=== PATIENT | male | born 1945 | race African-American/Black ===

== ENCOUNTER 2022-06-07 17:42 | Emergency (ER) | payer OTHER, MEDICARE ==
[~2022-06-07] VITALS: Ht 185.4 cm; Wt 75.0 kg
[~2022-06-07 17:42] MED LIST: ALBU18HF2 IH; CLAR10 PO
[2022-06-07] MEDS ORDERED: ALBUTEROL (0.083%) 2.5MG/3ML NEB HHN STA (18:38)
[2022-06-07] MEDS ORDERED: IPRATROPIUM BROMIDE (0.02%) 0.5MG/2.5ML NEB HHN STA (18:38)
[2022-06-07] MEDS ORDERED: METHYLPREDNISOLONE SOD SUCC 125 MG/2 ML VIAL IV STA (18:38)
[2022-06-07 19:29] LABS: BASOPHILS % 0.7 % (0.0-2.0); CHLORIDE 103 mEq/L (98-107); EOSINOPHILS % 4.8 % (0.0-5.0); HEMOGLOBIN. 13.7 g/dL (14.0-18.0); LYMPHOCYTES % 28.3 % (20.0-50.0); MEAN CORPUSCULAR HEMOGLOBIN 31.4 pg (28.0-32.0); MEAN CORPUSCULAR VOLUME 91.6 fL (80.0-94.0); MEAN PLATELET VOLUME 7.4 fl (7.4-10.4); NEUTROPHILS % 55.2 % (40.0-76.0); PLATELET 257 x1000/uL (130-400); RED BLOOD CELL COUNT 4.36 mill/uL (4.7-6.1); RED CELL DISTRIBUTION WIDTH 13.7 % (11.6-14.6)
[2022-06-07] MEDS ORDERED: ALBU6.7H3 INH (20:14)
[2022-06-07] MEDS ORDERED: LEVO750T68 MT (20:14)
[2022-06-07] MEDS ORDERED: P20 MT (20:14)
[2022-06-07 20:28] VITALS: BP 143/72
== END 2022-06-07 20:33 | disposition home or self-care (01) ==
LOC: ER 17:46
DX: J44.1 Chronic obstructive pulmonary disease with (acute) exacerbation (principal); R06.02 Shortness of breath; R06.2 Wheezing; Z85.9 Personal history of malignant neoplasm, unspecified
CPT/HCPCS: 36415; 71045; 80053; 83880; 84484; 85025; 93005; 96374; 99285; J2930

== ENCOUNTER 2023-09-21 15:45 | Emergency (ER) | payer OTHER ==
[~2023-09-21] VITALS: Ht 180.3 cm; Wt 66.0 kg
[~2023-09-21 15:45] MED LIST changes: +ALBU6.7H3 INH; +LEVO750T68 MT; +P20 MT
[2023-09-21 16:00] VITALS: TEMP 98.3
[2023-09-21 17:17] LABS: BASOPHILS % 0.5 % (0.0-2.0); EOSINOPHILS % 14.4 % (0.0-5.0); HEMATOCRIT. 37.7 % (42.0-52.0); HEMOGLOBIN. 12.9 g/dL (14.0-18.0); LYMPHOCYTES % 30.6 % (20.0-50.0); MEAN CORPUSCULAR HGB CONC 34.1 g/dL (31.0-37.0); MEAN CORPUSCULAR VOLUME 90.9 fL (80.0-94.0); MEAN PLATELET VOLUME 7.5 fl (7.4-10.4); MONOCYTES % 8.2 % (2.0-8.0); NEUTROPHILS % 46.3 % (40.0-76.0); PLATELET 265 x1000/uL (130-400); RED BLOOD CELL COUNT 4.15 mill/uL (4.7-6.1); RED CELL DISTRIBUTION WIDTH 13.8 % (11.6-14.6); WHITE BLOOD COUNT 6.7 x1000/uL (4.5-11.0)
[2023-09-21 17:40] LABS: CHLORIDE 107 mEq/L (98-107); POTASSIUM 4.7 mEq/L (3.5-5.1); SODIUM 141 mEq/L (136-145)
[2023-09-21 17:41] LABS: CALCIUM 8.7 mg/dL (8.7-10.4); CARBON DIOXIDE 27 mEq/L (21-32)
[2023-09-21 17:46] LABS: CREATININE 0.8 mg/dL (0.6-1.3); GLUCOSE 80 mg/dL (70-105); UREA NITROGEN BLOOD 8 mg/dL (9-23)
[2023-09-21 17:50] LABS: TROPONIN I HIGH SENSITIVITY < 4 ng/L (3.0-53)
[2023-09-21] MEDS: METHYLPREDNISOLONE SOD SUCC 125MG/2ML (ACT-O-VIAL) IV STA (21:05)
[2023-09-21] MEDS: ALBUTEROL (0.083%) 2.5MG/3ML NEB HHN STA (21:14)
[2023-09-21 21:15] VITALS: PULSE 87; RESP 20; O2SAT 95
[2023-09-21 23:13] VITALS: BP 143/74; PULSE 83; RESP 12
[2023-09-21] MEDS ORDERED: ALBU6.7H15 INH (23:22)
[2023-09-21] MEDS ORDERED: P50 MT (23:22)
== END 2023-09-21 23:32 | disposition home or self-care (01) ==
LOC: ER 15:45
DX: R06.03 Acute respiratory distress (principal); J44.9 Chronic obstructive pulmonary disease, unspecified; F19.90 Other psychoactive substance use, unspecified, uncomplicated; Z85.9 Personal history of malignant neoplasm, unspecified
CPT/HCPCS: 80048; 85025; 84484; 36415; 71045; 94640; 93005; 96374; 99285; 99406; J2919; Z7610 ×4